=== PATIENT | female | born 1995 | race American Indian/Alaskan Native ===

== ENCOUNTER 2021-01-09 17:53 | Emergency (ER) | payer SELFPAY | END 2021-01-09 17:58 | disposition left against medical advice (07) | LOC: ED 17:53 | DX: O99.280 Endocrine, nutritional and metabolic diseases complicating pregnancy, unspecified trimester (principal); E86.0 Dehydration; Z3A.00 Weeks of gestation of pregnancy not specified ==

== ENCOUNTER 2021-01-11 12:21 | Emergency (ER) | payer SELFPAY ==
[2021-01-11 13:49] LABS: Bilirubin,Urine NEG (Negative); Blood,Urine NEG (Negative); Color,Urine Amber (Yellow); Mucus,Urine 3+ /HPF
[2021-01-11 14:42] LABS: Basophils % (Auto) 0.5 % (0.0-1.8); Eosinophils % (Auto) 0.5 % (0.0-4.3); Hematocrit 42.3 % (30.3-42.9); Hemoglobin 14.5 gm/dl (10.1-14.3); Lymphocytes # (Auto) 1.2 K/mm3 (1.2-5.4); Lymphocytes % (Auto) 16.5 % (13.4-35.0); Mean Corpuscular HGB Conc 34 % (30-34); Mean Corpuscular Volume 94 fl (79-97); Monocytes # (Auto) 0.5 K/mm3 (0.0-0.8); Monocytes % (Auto) 7.3 % (0.0-7.3); Platelet Count 250 K/mm3 (140-440); Red Blood Count 4.51 M/mm3 (3.65-5.03); Red Cell Distribution Width 13.2 % (13.2-15.2)
[2021-01-11 15:06] LABS: Alanine Aminotransferase 15 units/L (7-56); Albumin 4.8 g/dL (3.9-5); BUN/Creatinine Ratio 19; Blood Urea Nitrogen 15 mg/dL (7-17); Calcium 9.2 mg/dL (8.4-10.2); Hemolysis Index 0
[2021-01-11] MEDS ORDERED: LACTATED RINGERS 1,000 ML IV ONE (16:02)
[2021-01-11] MEDS ORDERED: diphenhydrAMINE 50 MG/ML VIAL IV ONE (16:30)
[2021-01-11] MEDS ORDERED: METOCLOPRAMIDE 10 MG/2 ML INJ IV ONE (16:30)
--- NOTE | 2021-01-11 17:08 | Emergency Department Report ---
ED General Adult HPI - General Chief complaint: Nausea/Vomiting/Diarrhea Stated complaint: DEHYDRATED Time Seen by Provider: 01/11/21 16:01 Source: patient Mode of arrival: Ambulatory Limitations: No Limitations - History of Present Illness Initial comments: 25-year-old -[place] female patient presents with complaints of nausea and vomiting x4 days. Patient states her last menstrual cycle was approximately 6 weeks ago and that she had a positive test 4 days ago. She denies any abdominal pain and states a history of hyperemesis gravidarum in her prior pregnancies. She is G6, . She denies any hematemesis/coffee-g round emesis, fever/chills/sweats, chest pain, shortness of breath, vaginal bleeding, dysuria/hematuria/urinary frequency, or vaginal discharge/dyspareunia. -: Sudden - Related Data Previous Rx's Medication Instructions Recorded Last Taken Type Metoclopramide [Reglan] 10 mg PO TID PRN #40 tab 01/11/21 Unknown Rx diphenhydrAMINE [Benadryl CAP] 25 mg PO Q8HR PRN #40 capsule 01/11/21 Unknown Rx Allergies Allergy/AdvReac Type Severity Reaction Status Date / Time No Known Allergies Allergy Unverified 01/11/21 12:23 ED Review of Systems ROS: Stated complaint: DEHYDRATED Other details as noted in HPI Constitutional: weakness. denies: chills, diaphoresis, fever, malaise Respiratory: denies: shortness of breath Cardiovascular: denies: chest pain Gastrointestinal: nausea, vomiting. denies: abdominal pain Genitourinary: denies: dysuria, frequency, hematuria, discharge, abnormal menses Musculoskeletal: denies: back pain Skin: denies: change in color Neurological: denies: headache ED Past Medical Hx - Past Medical History Previous Medical History?: No - Surgical History Past Surgical History?: No - Social History Smoking Status: Current Every Day Smoker Substance Use Type: Alcohol, Marijuana - Medications Home Medications: Home Medications Medication Instructions Recorded Confirmed Last Taken Type Metoclopramide [Reglan] 10 mg PO TID PRN #40 tab 01/11/21 Unknown Rx diphenhydrAMINE [Benadryl CAP] 25 mg PO Q8HR PRN #40 capsule 01/11/21 Unknown Rx ED Physical Exam - General Limitations: No Limitations General appearance: alert, in no apparent distress - Head Head exam: Present: atraumatic, normocephalic - Eye Eye exam: Present: normal appearance. Absent: scleral icterus - Respiratory Respiratory exam: Present: normal lung sounds bilaterally. Absent: respiratory distress - Cardiovascular Cardiovascular Exam: Present: regular rate, normal rhythm - GI/Abdominal GI/Abdominal exam: Present: soft, normal bowel sounds. Absent: distended, tenderness, guarding, rebound, rigid - Back Exam Back exam: Present: full ROM - Neurological Exam Neurological exam: Present: alert, oriented X3, normal gait - Psychiatric Psychiatric exam: Present: normal affect, normal mood - Skin Skin exam: Present: warm, dry, intact, normal color. Absent: rash, cyanosis, diaphoretic, pallor, ecchymosis ED Course Vital Signs 01/11/21 12:53 Temperature 98.6 F Pulse Rate 55 L Respiratory 20 Rate Blood Pressure 102/55 O2 Sat by Pulse 99 Oximetry ED Medical Decision Making - Lab Data Result diagrams: 01/11/21 13:52 01/11/21 13:52 Lab Results 01/11/21 01/11/21 01/11/21 Range/Units 13:28 13:52 13:52 WBC 7.1 (4.5-11.0) K/mm3 RBC 4.51 (3.65-5.03) M/mm3 Hgb 14.5 H (10.1-14.3) gm/dl Hct 42.3 (30.3-42.9) % MCV 94 (79-97) fl MCH 32 (28-32) pg MCHC 34 (30-34) % RDW 13.2 (13.2-15.2) % Plt Count 250 (140-440) K/mm3 Lymph % (Auto) 16.5 (13.4-35.0) % Lassen % (Auto) 7.3 (0.0-7.3) % Eos % (Auto) 0.5 (0.0-4.3) % Baso % (Auto) 0.5 (0.0-1.8) % Lymph # (Auto) 1.2 (1.2-5.4) K/mm3 Lassen # (Auto) 0.5 (0.0-0.8) K/mm3 Eos # (Auto) 0.0 (0.0-0.4) K/mm3 Baso # (Auto) 0.0 (0.0-0.1) K/mm3 Seg Neutrophils % 75.2 H (40.0-70.0) % Seg Neutrophils # 5.4 (1.8-7.7) K/mm3 Sodium 136 L (137-145) mmol/L Potassium 3.5 L (3.6-5.0) mmol/L Chloride 97.6 L (98-107) mmol/L Carbon Dioxide 24 (22-30) mmol/L Anion Gap 18 mmol/L BUN 15 (7-17) mg/dL Creatinine 0.8 (0.6-1.2) mg/dL Estimated GFR > 60 ml/min BUN/Creatinine Ratio 19 % Glucose 81 (65-100) mg/dL Calcium 9.2 (8.4-10.2) mg/dL Total Bilirubin 1.10 (0.1-1.2) mg/dL AST 18 (5-40) units/L ALT 15 (7-56) units/L Alkaline Phosphatase 63 (35-129) units/L Total Protein 8.0 (6.3-8.2) g/dL Albumin 4.8 (3.9-5) g/dL Albumin/Globulin Ratio 1.5 % HCG, Qual (Negative) Urine Color Kelle (Yellow) Urine Turbidity Clear (Clear) Urine pH 6.0 (5.0-7.0) Ur Specific Ozan 1.032 H (1.003-1.030) Urine Protein 100 mg/dl (Negative) mg/dL Urine Glucose (UA) Neg (Negative) mg/dL Urine Ketones 80 (Negative) mg/dL Urine Blood Neg (Negative) Urine Nitrite Neg (Negative) Urine Bilirubin Neg (Negative) Urine Urobilinogen 2.0 (<2.0) mg/dL Ur Leukocyte Esterase Neg (Negative) Urine WBC (Auto) 2.0 (0.0-6.0) /HPF Urine RBC (Auto) 1.0 (0.0-6.0) /HPF U Epithel Cells (Auto) 1.0 (0-13.0) /HPF Urine Mucus 3+ /HPF 01/11/21 Range/Units 13:52 WBC (4.5-11.0) K/mm3 RBC (3.65-5.03) M/mm3 Hgb (10.1-14.3) gm/dl Hct (30.3-42.9) % MCV (79-97) fl MCH (28-32) pg MCHC (30-34) % RDW (13.2-15.2) % Plt Count (140-440) K/mm3 Lymph % (Auto) (13.4-35.0) % Lassen % (Auto) (0.0-7.3) % Eos % (Auto) (0.0-4.3) % Baso % (Auto) (0.0-1.8) % Lymph # (Auto) (1.2-5.4) K/mm3 Lassen # (Auto) (0.0-0.8) K/mm3 Eos # (Auto) (0.0-0.4) K/mm3 Baso # (Auto) (0.0-0.1) K/mm3 Seg Neutrophils % (40.0-70.0) % Seg Neutrophils # (1.8-7.7) K/mm3 Sodium (137-145) mmol/L Potassium (3.6-5.0) mmol/L Chloride (98-107) mmol/L Carbon Dioxide (22-30) mmol/L Anion Gap mmol/L BUN (7-17) mg/dL Creatinine (0.6-1.2) mg/dL Estimated GFR ml/min BUN/Creatinine Ratio % Glucose (65-100) mg/dL Calcium (8.4-10.2) mg/dL Total Bilirubin (0.1-1.2) mg/dL AST (5-40) units/L ALT (7-56) units/L Alkaline Phosphatase (35-129) units/L Total Protein (6.3-8.2) g/dL Albumin (3.9-5) g/dL Albumin/Globulin Ratio % HCG, Qual Positive (Negative) Urine Color (Yellow) Urine Turbidity (Clear) Urine pH (5.0-7.0) Ur Specific Ozan (1.003-1.030) Urine Protein (Negative) mg/dL Urine Glucose (UA) (Negative) mg/dL Urine Ketones (Negative) mg/dL Urine Blood (Negative) Urine Nitrite (Negative) Urine Bilirubin (Negative) Urine Urobilinogen (<2.0) mg/dL Ur Leukocyte Esterase (Negative) Urine WBC (Auto) (0.0-6.0) /HPF Urine RBC (Auto) (0.0-6.0) /HPF U Epithel Cells (Auto) (0-13.0) /HPF Urine Mucus /HPF - Medical Decision Making 25-year-old -[place] female patient presents with complaints of nausea and vomiting x4 days. Patient states her last menstrual cycle was approximately 6 weeks ago and that she had a positive test 4 days ago. She denies any abdominal pain and states a history of hyperemesis gravidarum in her prior pregnancies. She is G6, . She denies any hematemesis/coffee- ground emesis, fever/chills/sweats, chest pain, shortness of breath, vaginal bleeding, dysuria/hematuria/urinary frequency, or vaginal discharge/dyspareunia. No significant abnormalities noted on CBC, CMP, or UA. Patient given IV Reglan and Benadryl and 1 L of LR. She is now tolerating juice and crackers. Her vitals are normal, she is well-appearing, she is stable for discharge home. Will DC home with Benadryl and Reglan with follow-up with [facility] in 3 to 5 days. Discussed adequate hydration and signs and symptoms that should prompt i mmediate return to the emergency department in detail patient verbalizes understanding. Patient states understanding of the plan of care and denies any further questions at this time. Critical care attestation.: If time is entered above; I have spent that time in minutes in the direct care of this critically ill patient, excluding procedure time. ED Disposition Clinical Impression: Vomiting during Disposition: DC-01 TO HOME OR SELFCARE Is pt being admited?: No Condition: Stable Instructions: Hyperemesis Gravidarum Prescriptions: diphenhydrAMINE [Benadryl CAP] 25 mg PO Q8HR PRN #40 capsule PRN Reason: Nausea Metoclopramide [Reglan] 10 mg PO TID PRN #40 tab PRN Reason: Nausea Referrals: [facility] [Provider [facility]] - 3-5 Days Forms: Work/School Release Form(ED)
[2021-01-11] MEDS ORDERED: POTASSIUM CHLORIDE ER 20 MEQ TAB PO ONE (18:30)
[2021-01-11 18:42] VITALS: BP 101/70
[2021-01-11 23:19] LABS: Bacteria,Urine 1+ /HPF (Negative); Bilirubin,Urine NEG (Negative); Blood,Urine NEG (Negative); Color,Urine Amber (Yellow); Mucus,Urine 3+ /HPF
== END 2021-01-11 18:42 | disposition home or self-care (01) ==
LOC: ED 12:21
DX: O21.0 Mild hyperemesis gravidarum (principal); Z3A.01 Less than 8 weeks gestation of pregnancy
CPT/HCPCS: 36415; 80053; 81001; 84703; 85025; 96361; 96374; 96375; 99283; J1200; J2765; J7120

== ENCOUNTER 2022-03-04 10:01 | Emergency (ER) | payer SELFPAY ==
--- NOTE | 2022-03-04 10:18 | Event Note ---
ED Screening Note Date of service: 03/04/22 Time: 10:16 ED Screening Note: pt reports external hemorrhoids with pain and pain with sitting down. no N/V/D. no hx of hemorrhoids This initial assessment/diagnostic orders/clinical plan/treatment(s) is/are subject to change based on patients health status, clinical progression and re- assessment by fellow clinical providers in the ED. Further treatment and workup at subsequent clinical providers discretion. Patient/guardian urged not to elope from the ED as their condition may be serious if not clinically assessed and managed. Initial orders include: no initial orders at this time
[2022-03-04 10:25] VITALS: BP 141/87
[2022-03-04] MEDS ORDERED: LORazepam 2 MG/ML VIAL IM ONE (19:08)
--- NOTE | 2022-03-04 20:28 | Emergency Department Report ---
ED General Adult HPI - General Chief complaint: GI Bleed Stated complaint: RECTAL BLEEDING Time Seen by Provider: 03/04/22 19:03 Source: patient Mode of arrival: Ambulatory Limitations: No Limitations - History of Present Illness Initial comments: Patient is a 26-year-old female with history of migraines and on intermittent narcotics who states that every time she takes narcotics she gets constipated. Over the last month the constipation has worsened and she has been afraid to have a bowel movement so she has been holding it. She has been taking fiber wafers and Gummies as well as water but not really eating anything else. She denies any abdominal pain, fever, nausea or vomiting. She has had some blood on the tissue when she wipes and states it is painful to sit. Severity scale (0 -10): 6 Associated Symptoms: denies: chest pain, cough, diaphoresis, fever/chills, malaise, nausea/vomiting, shortness of breath, syncope, weakness Treatments Prior to Arrival: other (Dulcolax without relief) - Related Data Previous Rx's Medication Instructions Recorded Last Taken Type Metoclopramide [Reglan] 10 mg PO TID PRN #40 tab 01/11/21 Unknown Rx diphenhydrAMINE [Benadryl CAP] 25 mg PO Q8HR PRN #40 capsule 01/11/21 Unknown Rx Hydrocort/Pramoxine (Nf) [Analpram 30 gm DC QID PRN #1 tube 03/04/22 Unknown Rx Hc (Nf) 2.5/1%] Allergies Allergy/AdvReac Type Severity Reaction Status Date / Time No Known Allergies Allergy Verified 03/04/22 10:26 ED Review of Systems ROS: Stated complaint: RECTAL BLEEDING Other details as noted in HPI Comment: All other systems reviewed and negative Constitutional: denies: chills, fever Eyes: denies: eye pain, eye discharge, vision change ENT: denies: ear pain, throat pain Respiratory: denies: cough, shortness of breath, wheezing Cardiovascular: denies: chest pain, palpitations Endocrine: no symptoms reported Gastrointestinal: as per HPI Genitourinary: denies: urgency, dysuria, discharge Musculoskeletal: denies: back pain, joint swelling, arthralgia Skin: denies: rash, lesions Neurological: denies: headache, weakness, paresthesias Psychiatric: denies: anxiety, depression Hematological/Lymphatic: denies: easy bleeding, easy bruising ED Past Medical Hx - Past Medical History Previous Medical History?: No - Surgical History Past Surgical History?: No - Social History Smoking Status: Never Smoker Substance Use Type: None - Medications Home Medications: Home Medications Medication Instructions Recorded Confirmed Last Taken Type Metoclopramide [Reglan] 10 mg PO TID PRN #40 tab 01/11/21 Unknown Rx diphenhydrAMINE [Benadryl CAP] 25 mg PO Q8HR PRN #40 capsule 01/11/21 Unknown Rx Hydrocort/Pramoxine (Nf) [Analpram 30 gm DC QID PRN #1 tube 03/04/22 Unknown Rx Hc (Nf) 2.5/1%] ED Physical Exam - General Limitations: No Limitations General appearance: alert, in no apparent distress - Head Head exam: Present: atraumatic, normocephalic - Eye Eye exam: Present: normal appearance - ENT ENT exam: Present: mucous membranes moist - Neck Neck exam: Present: normal inspection - Respiratory Respiratory exam: Present: normal lung sounds bilaterally. Absent: respiratory distress - Cardiovascular Cardiovascular Exam: Present: regular rate, normal rhythm. Absent: systolic murmur, diastolic murmur, rubs, gallop - GI/Abdominal GI/Abdominal exam: Present: soft, normal bowel sounds - Rectal Rectal exam: Present: hemorrhoids (1 large hemorrhoid at 1:00 and a smaller 1 at 6:00. Patient is exquisitely tender to touch but they do not appear thrombosed. Unable to tolerate internal rectal exam so uncertain whether she has a fecal impaction.) - Extremities Exam Extremities exam: Present: normal inspection - Back Exam Back exam: Present: normal inspection - Neurological Exam Neurological exam: Present: alert, oriented X3 - Psychiatric Psychiatric exam: Present: normal affect, normal mood - Skin Skin exam: Present: warm, dry, intact, normal color. Absent: rash ED Course Vital Signs 03/04/22 03/04/22 10:22 18:29 Temperature 99.0 F Pulse Rate 112 H Respiratory 18 Rate Blood Pressure 141/87 [Right] O2 Sat by Pulse 98 98 Oximetry - Reevaluation(s) Reevaluation #1: 03/04/22 20:27 Patient was given Ativan and attempt to do a rectal exam. Concern is for fecal impaction so I was hoping to break some of that up, but she was unable to tolerate even minimal digital insertion. ED Medical Decision Making - Medical Decision Making Hemorrhoids with rectal pain and obstipation. Unable to get good exam here to rule out fecal impaction. Will treat constipation/obstipation and recommended increasing high-fiber fruits such as prunes, raisins, peaches and apples. We will put her on Analpram and give her surgery follow-up. Unable to determine whether she has internal hemorrhoids as well but likely she does. Critical care attestation.: If time is entered above; I have spent that time in minutes in the direct care of this critically ill patient, excluding procedure time. ED Disposition Clinical Impression: Hemorrhoids, Obstipation Disposition: HOME / SELF CARE / HOMELESS Is pt being admited?: No Condition: Stable Instructions: Hemorrhoids, Glon-ol-Caay, Constipation, Adult Additional Instructions: recommended increasing high-fiber fruits such as prunes, raisins, peaches and apples. MiraLAX every 12 hours until good bowel movement and then daily until regular bowel movements. Analpram. surgery follow-up. REturn if abdominal pa in, fever vomiting. Recommend using travel pillow or hemorrhoid pillow to sit on. Prescriptions: Hydrocort/Pramoxine (Nf) [Analpram Hc (Nf) 2.5/1%] 30 gm DC QID PRN #1 tube PRN Reason: Hemorrhoids Referrals: JOSE GUADALUPE HENLEY MD [Staff Physician] - 3-5 Days Forms: Accompanied Note, Work/School Release Form(ED) Time of Disposition: 20:39
== END 2022-03-04 20:52 | disposition home or self-care (01) ==
LOC: ED 10:01
DX: K62.5 Hemorrhage of anus and rectum (principal); K59.00 Constipation, unspecified
CPT/HCPCS: 96372; 99282; J2060; 99283